=== PATIENT | male | born 1955 | race Caucasian/White ===

== ENCOUNTER 2021-01-05 12:54 | Emergency (ER) | payer BC, OTHER ==
[~2021-01-05] VITALS: Ht 177.8 cm; Wt 108.9 kg
[2021-01-05] MEDS ORDERED: VENLAFAXINE HCL25 MG PO (13:13)
[2021-01-05] MEDS ORDERED: AVAPRO300 MG PO (13:13)
[2021-01-05] MEDS ORDERED: NORVASC10 MG PO (13:13)
[2021-01-05] MEDS ORDERED: LOVASTATIN 20 M20 MG PO (13:14)
[2021-01-05] MEDS ORDERED: SUPER THERAVIT1 EACH PO (13:14)
[2021-01-05] MEDS ORDERED: HYDROCHLOROTHIA25 M1 PO (13:14)
[2021-01-05] MEDS ORDERED: FISH OIL 1,0001 EAC9 PO (13:15)
[2021-01-05] MEDS ORDERED: [UNRECOGNIZED DRUG - OTHER] (13:15)
[2021-01-05] MEDS ORDERED: ASA81BEC PO (13:16)
[2021-01-05] MEDS ORDERED: VITAMIN C250 M1 PO (13:16)
[2021-01-05 15:02] VITALS: BP 140/92
== END 2021-01-05 15:03 | disposition home or self-care (01) ==
LOC: M.ERS 12:54
DX: M71.561 Other bursitis, not elsewhere classified, right knee (principal); I10 Essential (primary) hypertension